=== PATIENT | male | born 1965 | race African-American/Black ===

== ENCOUNTER 2020-07-11 17:30 | Observation (INO) ==
[2020-07-11] MEDS ORDERED: lisinopriL 20 MG TABLET PO ONE (18:07)
[2020-07-11] MEDS ORDERED: Azithromycin 250 MG TABLET PO ONE (18:16)
[2020-07-11] MEDS ORDERED: cefTRIAXone 250 MG VIAL IM ONE (18:16)
[2020-07-11] MEDS ORDERED: Lidocaine 1% 20 ML MDV ONE (18:25)
[2020-07-11 19:39] LABS: Bilirubin,Urine Negative (Negative); Blood,Urine Negative (Negative); Clarity,Urine Clear (Clear); Color,Urine Yellow (Yellow); Glucose,Urine (UA) Normal (Normal); Ketones,Urine Negative (Negative); Leukocyte Esterase,Urine Negative (Negative); Mucus,Urine Few per lpf (None-Few); Nitrite,Urine Negative (Negative); PH,Urine 6.5 pH Units (5.0-8.0); Protein,Urine 30 mg/dL (Neg-Trace); Squamous Epithelial Cell,Urine Few per hpf (None-Few); WBC,Urine 0-3 per hpf (0-3)
[2020-07-11] MEDS ORDERED: hydroCHLOROthiazide 25 MG TABLET PO ONE (19:56)
[2020-07-11] MEDS ORDERED: haloperidoL 5 MG TABLET PO PRN (21:18)
[2020-07-11] MEDS ORDERED: Mag Hydrox/Al Hydrox/Simeth 30 ML UDC PO PRN (21:18)
[2020-07-11] MEDS ORDERED: Haloperidol Lactate 5 MG/ML VIAL IM PRN (21:18)
[2020-07-11] MEDS ORDERED: *HR* LORazepam 1 MG TABLET PO PRN (21:18)
[2020-07-11] MEDS ORDERED: Acetaminophen 325 MG TABLET PO PRN (21:18)
[2020-07-11] MEDS ORDERED: QUEtiapine Fumarate 25 MG TABLET PO PRN (21:18)
[2020-07-11] MEDS ORDERED: *HR* LORazepam 2 MG/ML VIAL IM PRN (21:18)
[2020-07-11] MEDS ORDERED: MOM Conc 10 ML UD.LIQ PO PRN (21:18)
[2020-07-11] MEDS ORDERED: hydrOXYzine pamoate 25 MG CAPSULE PO PRN (23:53)
[2020-07-12 09:15] VITALS: BP 150/93
[2020-07-12] MEDS ORDERED: Loratadine 10 MG TABLET PO PRN (10:48)
[2020-07-12] MEDS ORDERED: hydroCHLOROthiazide 25 MG TABLET PO SCH (11:00)
[2020-07-12] MEDS ORDERED: lisinopriL 20 MG TABLET PO SCH (11:00)
[2020-07-14 09:51] LABS: C. trachomatis by NAA Negative (Negative); N. gonorrhoeae by NAA Negative (Negative)
== END 2020-07-12 13:00 | disposition home or self-care (01) ==
LOC: EMEROOARM 17:30 → INTOOBSV 21:12 → 1ANU 21:12
PROVIDERS: ADMIT Psychiatry & Neurology Psychiatry; ATTEND Psychiatry & Neurology Psychiatry